=== PATIENT | male | born 1990 | race Caucasian/White ===

== ENCOUNTER 2016-12-25 17:02 | Emergency (ER) | payer OTHER ==
[~2016-12-25] VITALS: Ht 180.3 cm; Wt 89.8 kg
[~2016-12-25 17:02] MED LIST: HYDROCODON-ACE1 EAC7 PO; MOTRIN600 MG PO
[2016-12-25 17:33] LABS: HEMATOCRIT 40.9 % (38.0-50.0); MCH 30.4 PG (29.0-34.0); MCV 86.8 FL (86-99); MEAN PLAT.VOLUME 10.8 uM^3 (9.0-12.4); PLATELET COUNT 212 K/uL (156-360); RBC DIS.WIDTH-CV 12.1 % (11.8-14.6); RBC DIS.WIDTH-SD 38.8 % (39-53); RED BLOOD COUNT 4.71 M/uL (4.00-5.50)
[2016-12-25 17:43] LABS: CHLORIDE 107 mEq/L (99-109); POTASSIUM 3.9 mEq/L (3.7-5.4); SODIUM 140 mEq/L (136-147)
[2016-12-25 17:45] LABS: GLUCOSE 93 mg/dL (70-99)
[2016-12-25 17:46] LABS: ANION GAP 8 MEQ/L (2-14)
[2016-12-25 17:47] LABS: TOTAL BILIRUBIN 0.5 mg/dL (0.0-1.0)
[2016-12-25 17:49] LABS: ALKALINE PHOSPHATASE 45 IU/L (3-129); GFR ESTIMATE (CALCULATED) > 59 mL/min/
[2016-12-25 17:50] LABS: UREA NITROGEN (BUN) 15 mg/dL (9-23)
[2016-12-25 17:52] LABS: LIPASE 28 U/L (1.0-51.0)
[2016-12-25 18:46] LABS: ADD MIUA? YES; BILIRUBIN NEGATIVE; BLOOD NEGATIVE; COLOR YELLOW ((YELLOW)); GLUCOSE (STRIP) NEGATIVE; KETONES NEGATIVE; LEUKOCYTES NEGATIVE; NITRITE NEGATIVE; PROTEIN (STRIP) NEGATIVE; SPECIFIC GRAVITY 1.021 (1.000-1.030)
[2016-12-25 19:02] LABS: AMORPHOUS URATES CRYSTALS 2+; BACTERIA 1+ /HPF; CASTS NONE SEEN /LPF; CRYSTALS PRESENT; EPITHELIAL CELLS RARE /HPF; MUCUS NONE SEEN /LPF; RED BLOOD CELLS NONE SEEN /HPF (0-5); WHITE BLOOD CELLS NONE SEEN /HPF (0-5)
[2016-12-25] MEDS ORDERED: BACTRIM,SEPT1 TABLET PO (19:39)
[2016-12-25] MEDS ORDERED: PYRIDIUM100 MG PO (19:39)
[2016-12-25 19:52] VITALS: BP 134/71
== END 2016-12-25 19:53 | disposition home or self-care (01) ==
LOC: EME 17:02
PROVIDERS: Nurse Practitioner Family
DX: N39.0 Urinary tract infection, site not specified (principal); K59.00 Constipation, unspecified; K57.30 Diverticulosis of large intestine without perforation or abscess without bleeding; F17.200 Nicotine dependence, unspecified, uncomplicated; Z87.442 Personal history of urinary calculi
CPT/HCPCS: 74176; 80053; 81003; 83690; 85027; 99281; 99285; J1885; J2405; J7030

== ENCOUNTER 2017-09-15 13:24 | Emergency (ER) | payer OTHER ==
[~2017-09-15] VITALS: Ht 180.3 cm; Wt 82.7 kg
[~2017-09-15 13:24] MED LIST changes: +BACTRIM,SEPT1 TABLET PO; +PYRIDIUM100 MG PO
[2017-09-15] MEDS ORDERED: TOBREX3.5 GM BOTH EYES (16:28)
[2017-09-15] MEDS ORDERED: KEFLEX500 MG PO (16:28)
[2017-09-15 16:31] VITALS: BP 132/87
== END 2017-09-15 16:47 | disposition home or self-care (01) ==
LOC: EME 13:24
DX: S05.01XA Injury of conjunctiva and corneal abrasion without foreign body, right eye, initial encounter (principal); S01.111A Laceration without foreign body of right eyelid and periocular area, initial encounter; F17.200 Nicotine dependence, unspecified, uncomplicated; Y04.0XXA Assault by unarmed brawl or fight, initial encounter
CPT/HCPCS: 99281; 99284